=== PATIENT | male | born 1935 | race Caucasian/White ===

== ENCOUNTER → 2023-07-14 11:51 | Outpatient (REF) | payer OTHER, SELFPAY | LOC: PET 11:51 | DX: C10.9 Malignant neoplasm of oropharynx, unspecified (principal) | CPT/HCPCS: 78815; A9552 ==

== ENCOUNTER 2024-01-03 18:25 | Emergency (ER) | payer OTHER, SELFPAY ==
[2024-01-03 18:34] VITALS: BP 178/83
--- NOTE | 2024-01-03 18:48 | ED.SKININJ ---
HPI-Injury
General
Chief Complaint: Bite
Source: patient
Exam Limitations: none
Time Seen by Provider: 01/03/24 18:40
History of Present Illness-Injury
Initial Injury comments:
88 year old male presents with dog bite to left hand he sustained today from his own dog. Dog's vaccines up to date. Unknown last tetanus. He states the wound was bleeding quite a bit. No thinners. No pain. No other complaints at this time.
Past History
Past History
ED Past Medical History: Arrthythmia (afib), CAD, Cancer (prostate), GERD, HTN, Hypercholesterolemia and Other (hematuria)
ED Past Surgical History: Appendectomy, Cardiac (cabg), Cholecystectomy and Other (bilateral inguinal hernia repair, )
Social History
Tobacco: Non-smoker
Personal:
Living: with family
Phy Exam
Physical Exam
Physical Exam:
General: Well-appearing male no acute distress
Skin: Small puncture wound surrounding abrasion to the dorsal aspect left hand without underlying ecchymosis or swelling. No active bleeding
Musculoskeletal: Good range of motion all fingers left hand
Course
Orders/Labs/Results
Orders:
Orders
01/03/24 18:47
Amoxicillin 875 mg/Clav 125 mg [Augmentin 875 mg/125 mg] 1 tablet PO NOW STA
Tetanus and Diphtheria Tox/Pf [Tenivac] 0.5 ml IM .ONCE ONE
Vital Signs
Initial and Last Documented VS:
Initial Vital Signs
Temp Pulse Resp BP Pulse Ox
97.8 F 81 16 178/83 98
01/03/24 18:34 01/03/24 18:34 01/03/24 18:34 01/03/24 18:34 01/03/24 18:34
Last Documented Vital Signs
Temp Pulse Resp BP Pulse Ox
97.8 F 81 16 178/83 98
01/03/24 18:34 01/03/24 18:34 01/03/24 18:34 01/03/24 18:34 01/03/24 18:34
MDM/Problems Addressed
Differential Diagnosis Includes:
Dog bite left hand no concern for retained foreign body or underlying fracture. Wound appears superficial. No current bleeding. Will irrigate with saline placed antibacterial admin and a gauze wrap. Tetanus updated we will place on Augmentin for
prophylaxis. Stable for discharge with wound care instructions.
*Critical Care Note
Total Time (30-74mins, 75-104mins- exclusive of procedures): Not Applicable
ED Attending Note
-
Portions of this chart may have been created with voice recognition software.� Occasional wrong word or��sound alike� substitutions may have occurred due to the inherent limitations of voice recognition software.
Discharge Plan
Departure
Patient Disposition: Home (Routine Discharge)
Date of Disposition: 01/03/24
Time of Disposition: 18:52
Patient with high blood pressure during this ER visit?: No
Discharge Problem:
Dog bite
Instructions: Wound Care (DC)
Prescriptions:
New
amoxicillin-pot clavulanate 875-125 mg tablet
1 tab PO BID Qty: 14 0RF
No Action
ascorbic acid (vitamin C) [Vitamin C] 1,000 MG tablet
1 tab PO DAILY Qty: 0
docosahexaenoic acid-epa 1 CAP capsule
1 cap PO DAILY
Lysine
1 tab PO DAILY
amlodipine 10 MG tablet
10 mg PO DAILY
atorvastatin 40 MG tablet
40 mg PO QPM Qty: 30 3RF
aspirin 81 MG tablet,delayed release (DR/EC)
81 mg PO DAILY Qty: 0 0RF
melatonin 3 MG tablet
3 mg PO HS
coQ10 (ubiquinol) 100 MG capsule
100 mg PO DAILY
Vanadium With Chromium
1 tab PO DAILY
metformin 500 MG tablet
500 mg PO BID@0800,1700 Qty: 180 1RF
tamsulosin 0.4 MG capsule
0.4 mg PO DAILY Qty: 90 1RF
metoprolol tartrate 25 MG tablet
25 mg PO BID Qty: 180 1RF
amoxicillin 500 MG capsule
500 mg PO TID Qty: 30 0RF
hydrocodone-acetaminophen 5-325 mg tablet
1 tab PO Q4H PRN (Reason: Severe pain) Qty: 10 0RF
Activity Restrictions/Additional Instructions:
Change dressing daily. Use antibiotic as directed. Keep clean otherwise. Return if needed for signs of infection. Follow-up with family doctor otherwise this week for wound
Discharge Date and Time
Print Language: KOREAN
[2024-01-03] MEDS: TENIVAC 0.5 ML IM (18:55)
[2024-01-03] MEDS: AUGMENTIN 875 MG/125 MG 1 TABLET PO (18:55)
== END 2024-01-03 19:23 | disposition home or self-care (01) ==
LOC: EMR 18:25
PROVIDERS: EMERGENCY PHYSICIAN Emergency Medicine; FAMILY PHYSICIAN Internal Medicine
DX: S61.452A Open bite of left hand, initial encounter (principal); S60.512A Abrasion of left hand, initial encounter; W54.0XXA Bitten by dog, initial encounter; Z23 Encounter for immunization; I48.91 Unspecified atrial fibrillation; I10 Essential (primary) hypertension; E78.00 Pure hypercholesterolemia, unspecified; I25.10 Atherosclerotic heart disease of native coronary artery without angina pectoris; K21.9 Gastro-esophageal reflux disease without esophagitis; Z95.1 Presence of aortocoronary bypass graft; Z90.49 Acquired absence of other specified parts of digestive tract; Z91.048 Other nonmedicinal substance allergy status
CPT/HCPCS: 99283; 90471; 90714

== ENCOUNTER → 2024-10-08 11:05 | Outpatient (REF) | payer OTHER, SELFPAY | LOC: HWRAD 11:05 | PROVIDERS: ATTENDING PHYSICIAN Internal Medicine | DX: C77.0 Secondary and unspecified malignant neoplasm of lymph nodes of head, face and neck (principal) | CPT/HCPCS: 70491; Q9967 ==

== ENCOUNTER → 2025-03-03 13:01 | Outpatient (REF) | payer OTHER, SELFPAY | LOC: RAD 13:01 | PROVIDERS: ATTENDING PHYSICIAN Radiology Radiation Oncology; FAMILY PHYSICIAN Internal Medicine | DX: C10.9 Malignant neoplasm of oropharynx, unspecified (principal) | CPT/HCPCS: 93880 ==